=== PATIENT | male | born 1985 | race African-American/Black ===

== ENCOUNTER 2016-08-18 10:23 | Emergency (ER) | payer OTHER ==
[~2016-08-18] VITALS: Ht 188 cm; Wt 72.6 kg
[~2016-08-18 10:23] MED LIST: HYDROCODON-ACE1 EA15 ORAL; IBUPROFEN600 MG ORAL; NKM
--- NOTE | 2016-08-18 11:08 | Emergency Room Report ---
History of Present Illness General Chief Complaint: Lower Extremity Injury Source: Patient Present Illness HPI 30YOM with medial aspect left knee pain/swelling for 2 days since hitting another player's knee. Pain with full flexion of knee. Pain with walking. Took ibuprofen and ICEing it but still with pain. Allergies: Coded Allergies: No Known Allergies (Unverified , 03/29/14) Patient History Past Medical History: none Past Surgical History: none Pertinent Family History: none Social History: Denies: alcohol use, drug use, smoking Immunizations: UTD Nursing Documentation-PMH Past Medical History: No Stated History Review of Systems All Other Systems: negative except mentioned in HPI Physical Exam Vital Signs Date Time Temp Pulse Resp B/P Pulse Ox O2 Delivery O2 Flow Rate FiO2 08/18/16 10:30 97.5 47 16 112/71 100 Room Air Sp02 EP Interpretation: reviewed, normal General Appearance: normal inspection, well appearing, no apparent distress, alert Head: atraumatic ENT: normal ENT inspection, hearing grossly normal, normal voice Neck: normal inspection, full range of motion, supple, no bony tend Respiratory: normal inspection, lungs clear, normal breath sounds, no respiratory distress, no retraction, no wheezing Cardiovascular #1: regular rate, rhythm, no edema Gastrointestinal: normal inspection, normal bowel sounds, non tender, soft, no guarding, no hernia Musculoskeletal: normal inspection, back normal, normal range of motion, Polina' s Sign negative, other - Right knee: obvious swelling/effusion to medial/ superior aspect of knee. Pain with full Flexion. No ttp to tib/fib, ankle, foot Neurologic: normal inspection, alert, oriented x3, responsive, it architecture consultant III-XII nml as tested, motor strength/tone normal, speech normal Psychiatric: normal inspection, judgement/insight normal, mood/affect normal Skin: normal inspection, normal color, no rash Medical Decision Making Diagnostic Impression: Primary Impression: Right knee pain Qualified Codes: M25.561 - Pain in right knee ER Course Xray: No acute fx Advised TIFFANY wrap for effusion Advised RICE PMD followup Rx Ibuprofen Other X-Ray Diagnostic Results Other X-Ray Diagnostic Results : X-Ray Ordered: Right knee EP Interpretation: Yes Findings: no fractures, no dislocation, no soft tissue swelling Last Vital Signs Date Time Temp Pulse Resp B/P Pulse Ox O2 Delivery O2 Flow Rate FiO2 08/18/16 10:30 97.5 47 16 112/71 100 Room Air Status: improved Disposition: HOME, SELF-CARE ESTELITA MURPHY M.D. Aug 18, 2016 11:08
[2016-08-18 12:21] VITALS: BP 112/71
--- NOTE | 2016-08-20 09:06 | Diagnostic Imaging Report ---
Indication: PAIN Technique: XRAY KNEE THREE VIEWS RIGHT Comparison: None. Findings: The osseous structures are intact. There is no fracture or destruction. There is fullness of the suprapatellar pouch. The remainder the study is unremarkable. Impression: Knee effusion.
== END 2016-08-18 12:21 | disposition home or self-care (01) ==
LOC: EMR 11:27
DX: M25.561 Pain in right knee (principal); M25.461 Effusion, right knee
CPT/HCPCS: 99282

== ENCOUNTER 2017-07-26 11:11 | Emergency (ER) | payer MEDICAID, OTHER ==
[~2017-07-26] VITALS: Ht 188 cm; Wt 68.9 kg
[2017-07-26 11:35] VITALS: BP 129/89
[2017-07-26] MEDS ORDERED: IBUPROFEN600 MG ORAL (12:21)
--- NOTE | 2017-07-26 12:21 | Emergency Room Report ---
History of Present Illness General Chief Complaint: Pain Source: Patient Present Illness HPI 31 yo male presents to ER complaining of mouth infection. Patient reports currently being seen by dentist; last appointment on Saturday 2 days ago. Reports being treated with Amoxicillin. Denies tooth pain, fever, vision changes, nausea, vomiting. Report followup appointment on next Saturday. Reports taking Tylenol and Ibuprofen for pain. Requesting stronger pain medication. Allergies: Coded Allergies: No Known Allergies (Unverified , 03/29/14) Patient History Past Medical History: see triage record Reviewed Nursing Documentation: PMH: Agreed; PSxH: Agreed Nursing Documentation-PMH Past Medical History: No Stated History Review of Systems All Other Systems: negative except mentioned in HPI Physical Exam Vital Signs Date Time Temp Pulse Resp B/P (MAP) Pulse Ox O2 Delivery O2 Flow Rate FiO2 07/26/17 11:28 98.1 71 18 129/89 98 Room Air 98.1 Sp02 EP Interpretation: reviewed, normal General Appearance: well appearing, no apparent distress, alert, GCS 15, non- toxic Head: normocephalic, atraumatic, other - mild swelling of right upper cheek Eyes: bilateral eye normal inspection, bilateral eye PERRL ENT: hearing grossly normal, normal pharynx, no angioedema, normal voice, TMs + canals normal, uvula midline, moist mucus membranes, other - no TTP of teeth, mild erythema of right upper gum and inside cheek, no open sores, no lesions, no drainage Neck: full range of motion Respiratory: lungs clear, normal breath sounds, no rhonchi, no respiratory distress, no accessory muscle use, no wheezing, speaking full sentences Cardiovascular #1: regular rate, rhythm, no edema Musculoskeletal: back normal, digits/nails normal, gait/station normal, normal range of motion, non-tender Neurologic: alert, oriented x3, responsive, motor strength/tone normal, sensory intact Psychiatric: mood/affect normal Skin: no rash Lymphatic: no adenopathy Medical Decision Making PA Attestation Dr. Oquendo is my supervising Physician whom patient management has been discussed with. Diagnostic Impression: Primary Impression: Gum inflammation ER Course Pt. presents to the ED c/o cheek pain. Ddx considered but are not limited to tooth infection, gingivitis, stomatitis, dental caries. Patient reports imaging done at dentist shows no signs of infection. Does not require imaging in ED at this time. Vital signs: are WNL, pt. is afebrile ORDERS: none required at this time, the diagnosis is clinical ER COURSE: PE shows mild swelling of right upper cheek over effected gum, consistent with patient history. Patient requesting prescription for stronger pain medication. CURES report negative. Informed patient will not provide with opioid prescription. Will provide with pain medication in ER. Need to speak with dentist and primary care provider regarding further pain control medication. Patient reports agreement to treatment plan. Patient provided with Mcdonough in ER for pain. Continue to take abx as prescribed by dentist. Patient reports feeling better. Patient requesting work note. Provided to patient. DISCHARGE: Rx provided for Ibuprofen for pain. At this time pt is stable for d/c to home. Patient is resting comfortably, in no acute distress, nontoxic appearing, talking without difficulty. Patient to take medications as instructed Will provide with patient care instructions and any necessary prescriptions. Care plan and follow-up instructions provided. Patient instructed to follow-up with primary care provider in 3 - 5 days. Patient questions asked and answered. Patient reports understanding and agreement to treatment plan. ER precautions given. Patient instructed to return to ER immediately for any new or worsening of symptoms including but not limited to increasing SOB, persistent fever. Last Vital Signs Date Time Temp Pulse Resp B/P (MAP) Pulse Ox O2 Delivery O2 Flow Rate FiO2 07/26/17 11:35 98.1 71 18 129/89 98 Room Air 98.1 Disposition: HOME, SELF-CARE Condition: Stable Scripts Ibuprofen* (MOTRIN*) 600 Mg Tablet 600 MG ORAL Q6H PRN for For Pain, #30 TAB Prov: Mason Presley 07/26/17 Patient Instructions: Dental Abscess, [id number], Gingivitis, [id number] Additional Instructions: Followup with primary care provider in 3 -5 days. Followup with dentist at scheduled appointment. Continue to take abx as previously instructed. Take medications as directed. Patient questions asked and answered. ER precautions given, patient instructed to return to ER immediately for any new or worsening of symptoms including but not limited to fever, intractable vomiting. Mason Presley Jul 26, 2017 12:21
[2017-07-26] MEDS ORDERED: Norco 5mg/325mg tab ORAL ONE (12:30)
[2017-07-26 12:45] VITALS: BP 129/89
== END 2017-07-26 12:47 | disposition home or self-care (01) ==
LOC: EMR 12:10
DX: K05.10 Chronic gingivitis, plaque induced (principal); R51 Headache
CPT/HCPCS: 99283

== ENCOUNTER 2018-07-01 06:14 | Emergency (ER) | payer MEDICAID ==
[~2018-07-01] VITALS: Ht 188 cm; Wt 74.8 kg
[2018-07-01 07:06] VITALS: BP 122/72
--- NOTE | 2018-07-01 07:08 | Emergency Room Report ---
History of Present Illness General Chief Complaint: Toothache Source: Patient Present Illness HPI Patient presents with complaints of right upper back dental pain reports that he woke up last night with the pain Denies any fevers or chills denies any chest pain or shortness of breath patient reports that he was told about a year ago that he needs a root canal Denies any sore throat denies any abdominal pain Secondarily patient also complains of some discomfort with urination Dribbling affect Denies any fevers or chills denies any swelling in his groin patient is sexually active and has been unprotected at times Allergies: Coded Allergies: No Known Allergies (Unverified , 03/29/14) Patient History Past Medical History: see triage record Pertinent Family History: none Reviewed Nursing Documentation: PMH: Agreed; PSxH: Agreed Nursing Documentation-PMH Past Medical History: No Stated History Review of Systems All Other Systems: negative except mentioned in HPI Physical Exam Vital Signs Date Time Temp Pulse Resp B/P (MAP) Pulse Ox O2 Delivery O2 Flow Rate FiO2 07/01/18 06:29 97.9 60 14 122/72 97 Room Air Sp02 EP Interpretation: reviewed, normal General Appearance: well appearing, no apparent distress Head: normocephalic, atraumatic Eyes: bilateral eye PERRL, bilateral eye EOMI ENT: hearing grossly normal, normal pharynx, TMs + canals normal, uvula midline , other - Patient has an invisilign tray in place on the upper teeth, right back molar shows some questionable decay no obvious edema Neck: full range of motion, supple, no meningismus, no bony tend Respiratory: lungs clear, normal breath sounds, no rhonchi, no respiratory distress, no retraction, no accessory muscle use Cardiovascular #1: regular rate, rhythm Gastrointestinal: normal bowel sounds, non tender, soft, no mass, non-distended , no guarding, no hernia, no pulsatile mass, no rebound Genitourinary: no CVA tenderness Musculoskeletal: normal inspection Neurologic: oriented x3, responsive, flute teacher III-XII nml as tested, motor strength/ tone normal, sensory intact Psychiatric: mood/affect normal Skin: normal color, no rash, warm/dry, palpation normal Lymphatic: normal inspection, no adenopathy Medical Decision Making Diagnostic Impression: Primary Impression: Dental caries Additional Impression: Urethritis ER Course In the patient's history and exam patient provided with Motrin and initial coverage for possible urethritis I discussed with the patient that follow-up at [facility] for other testing such as HIV, syphilis and other pathology that is not treated for here is very important patient understands this Patient also had invisilign in place and was recommended to follow-up with his dentist for the dental pathology Last Vital Signs Date Time Temp Pulse Resp B/P (MAP) Pulse Ox O2 Delivery O2 Flow Rate FiO2 07/01/18 06:29 97.9 60 14 122/72 97 Room Air Status: improved Disposition: HOME, SELF-CARE Condition: Improved Additional Instructions: Patient is provided with the discharge instructions notified to follow up with primary doctor in the next 2-3 days otherwise return to the er with any worsening symptoms. Please note that this report is being documented using [employer] technology. This can lead to erroneous entry secondary to incorrect interpretation by the dictating instrument. Kelly Crisostomo DO Jul 01, 2018 07:08
--- NOTE | 2018-07-01 07:09 | NUR ---
ED Nurse Note: Pt complains of right toothache x1 week. Reports burning upon urination. AO4. NAD. VSS.
[2018-07-01] MEDS ORDERED: Lidocaine 1% MPF 10mg/ml 5ml INJ ONE (07:15)
[2018-07-01] MEDS ORDERED: Azithromycin 250mg tab ORAL ONE (07:15)
[2018-07-01] MEDS ORDERED: IBUPROFEN600 MG ORAL (07:16)
[2018-07-01] MEDS ORDERED: AMOXICILLIN500 MG ORAL (07:16)
[2018-07-01 07:48] VITALS: BP 120/70
--- NOTE | 2018-07-01 07:50 | NUR ---
ER DISCHARGE NOTE: Patient is cleared to be discharged per ERMD, pt is aox4, on room air, with stable vital signs. pt was given dc and prescription instructions, pt was able to verbalize understanding, pt id band removed without complications. pt is able to ambulate with steady gait. pt took all belongings.
== END 2018-07-01 07:50 | disposition home or self-care (01) ==
LOC: EMR 07:05
DX: K02.9 Dental caries, unspecified (principal); N34.2 Other urethritis
CPT/HCPCS: 96372; 96374; 99284; J0696; Q0144